=== PATIENT | male | born 2000 | race Caucasian/White ===

== ENCOUNTER 2025-03-30 02:31 | Emergency (ER) | payer OTHER, SELFPAY ==
[2025-03-30 02:46] VITALS: BP 101/66; PULSE 81; RESP 18; TEMP 36.1; O2SAT 96; BMI 33.3
[2025-03-30 05:13] VITALS: PULSE 80; O2SAT 96
[2025-03-30 05:30] VITALS: PULSE 81; O2SAT 97
[2025-03-30 06:00] VITALS: PULSE 79; O2SAT 97
[2025-03-30 06:30] VITALS: PULSE 79; O2SAT 95
--- NOTE | 2025-03-30 06:38 | ED_ITS ---
HPI - Ear Problem General Chief complaint: Ear Stated complaint: Pressure in ears and sinuses sev weeks Time Seen by Provider: 03/30/25 05:03 Source: patient and family Mode of arrival: Ambulatory History of Present Illness HPI Narrative: 24 year old male with history of childhood ear tubes, complains of bilateral ear pain, no drainage, some recent sinus congestion. No current topical or systemic oral antibiotics. No recent antibiotics. No fevers chills dyspnea. No hearing aides, no local trauma/instrumentation ear canals. No known foreign bodies either canal. Related Data Previous Rx's ?Medication ?Instructions ?Recorded azithromycin 250 mg tablet See Rx Instructions PO .COM PLEX #6 03/30/25 tabs Allergies Allergy/AdvReac Type Severity Reaction Status Date / Time amoxicillin Allergy Hives Verified 03/30/25 02:46 clavulanic acid (From Allergy Hives Verified 03/30/25 02:46 Augmentin) Patient History Social History Smoking Status: Never smoker Smoking Status: Never smoker Exam Narrative Exam Narrative: GENERAL: Well-developed patient, in mild distress. HEAD: Atraumatic. Normocephalic. EYES: Pupils equal round and reactive. Extraocular motions intact. No scleral icterus. No injection or drainage. ENT: Nose without bleeding, purulent drainage. Left ear serous OM changes, right TM suppurative changes, both EACs normal. Airway patent. NECK: Trachea midline. Non tender CARDIOVASCULAR: Regular rate and rhythm without murmurs, gallops, or rubs. RESPIRATORY: Clear to auscultation. Breath sounds equal bilaterally. No wheezes, rales, or rhonchi. GASTROINTESTINAL: Abdomen soft, non-tender, nondistended. EXTREMITIES: No edema or joint tenderness. BACK: Nontender without deformity or crepitance. No flank tenderness. NEURO: AOx3. Motor functions grossly nonfocal. SKIN: No rash or erythema of visible areas Initial Vital Signs Initial Vital Signs: Vital Signs Temperature 97.0 F L 03/30/25 02:46 Pulse Rate 81 03/30/25 02:46 Respiratory Rate 18 03/30/25 02:46 Blood Pressure 101/66 03/30/25 02:46 Pulse Oximetry 96 03/30/25 02:46 Oxygen Delivery Method Room Air 03/30/25 02:46 Course Orders Ordered: Discontinued Medications Azithromycin (Azithromycin 250 Mg Tablet) 500 mg PO NOW ONE Stop: 03/30/25 06:46 Last Admin: 03/30/25 06:57 Dose: 500 mg Documented By: CHANTEL Vital Signs Vital signs: Vital Signs - 8 hr 03/30/25 02:46 03/30/25 05:13 03/30/25 05:30 Temperature 97.0 F L Pulse Rate 81 80 81 Respiratory Rate 18 Blood Pressure 101/66 Pulse Oximetry 96 96 97 Oxygen Delivery Method Room Air 03/30/25 06:00 Temperature Pulse Rate 79 Respiratory Rate Blood Pressure Pulse Oximetry 97 Oxygen Delivery Method Medical Decision Making MDM Narrative Medical decision making narrative: Bilaeral ear pain, removed ear tubes childhood, afebrile, Left serous OM on exam, Right suppurative OM on exam. EACs okay, without foreign bodies or purulence. History of Amox allergy, first dose Azithromycin given, Rx sent to requested pharmacy for further course. Consider re-check TMs after course an tibiotics completed. DC home with father. Discharge Plan Departure Patient Disposition: Home Clinical Impression: Right acute suppurative otitis media, Acute serous otitis media of left ear Instructions: Middle Ear Infection Activity Restrictions/Additional Instructions: History of previous ear infections, prior tympanostomy tubes, no recent tubes, no recent antibiotics, increasing bilateral ear pain without drainage. Left eardrum with clear fluid behind it, but not obviously dull or red or bulging, likely serous otitis media, clear fluid behind the eardrum, that is not itself require any antibiotic. Right eardrum however has dullness and inferior bulging, abnormal appearance, likely acute suppurative otitis media, likely infected, can be treated and observed without antibiotics, but can be treated with antibiotics and likely resolve little faster. History of penicillin allergy. Prior azithromycin used in the past. We will give oral dose of azithromycin here, further prescription antibiotic course sent to your pharmacy. Take antibiotics as directed. Take Tylenol and or Motrin as needed for pain control. Recheck ears after course of therapy advised. Return to this/nearest emergency department for any change worsening symptoms or any concerns prior. Prescriptions: New azithromycin 250 mg tablet See Rx Instructions PO .COMPLEX Qty: 6 0RF Rx Instructions: For 250 mg dose pack: take 500 mg today (day 1), then 250 mg for 4 days (days 2-5) Stand Alone Forms: Patient Portal/API
[2025-03-30] MEDS: AZITHROMYCIN 250 MG TABLET 500 MG PO (06:57)
== END 2025-03-30 07:02 | disposition home or self-care (01) ==
PROVIDERS: Emergency Provider Emergency Medicine
DX: H66.001 Acute suppurative otitis media without spontaneous rupture of ear drum, right ear (principal); H65.02 Acute serous otitis media, left ear
CPT/HCPCS: 99283